=== PATIENT | male | born 1955 | race American Indian/Alaskan Native ===

== ENCOUNTER 2019-02-21 19:45 | Emergency (ER) | payer SELFPAY ==
[2019-02-21 20:09] VITALS: BP 108/69
--- NOTE | 2019-02-21 20:21 | Emergency Department Report ---
Blank Doc - Documentation Documentation: 63-year-old male that presents with chest pain and SOB. This initial assessment/diagnostic orders/clinical plan/treatment(s) is/are subject to change based on patient's health status, clinical progression and re- assessment by fellow clinical providers in the ED. Further treatment and workup at subsequent clinical providers discretion. Patient/guardians urged not to elope from the ED as their condition may be serious if not clinically assessed and managed. Initial orders include: 1- Patient sent to MAIN ED for further evaluation and treatment 2- xrays 3- EKG 4- CXR
== END 2019-02-21 21:00 | disposition left against medical advice (07) ==
LOC: ED 19:45
DX: R07.9 Chest pain, unspecified (principal); Z53.21 Procedure and treatment not carried out due to patient leaving prior to being seen by health care provider
CPT/HCPCS: 93005; 93010